=== PATIENT | female | born 1995 | race Two or more races ===

== ENCOUNTER → 2019-01-10 15:32 | Emergency (ER) | payer SELFPAY ==
--- NOTE | 2019-01-10 17:02 | UC ---
- Progress Note Progress Note: PRE-EMPLOYMENT PHYSICAL EXAM. NO NOTE. NO IMAGING Course/Dx - Diagnoses Provider Diagnoses: Normal exam Discharge ED - Sign-Out/Discharge Documenting (check all that apply): Patient Departure All imaging exams completed and their final reports reviewed: No Studies - Discharge Plan Condition: Stable Disposition: HOME Referrals: No Primary Care Phys,NOPCP [Primary Care Provider] - - Billing Disposition and Condition Condition: STABLE Disposition: Home
== END | disposition home or self-care (01) ==
LOC: UCEAST 15:32
DX: Z02.1 Encounter for pre-employment examination (principal)